=== PATIENT | male | born 1940 | race African-American/Black ===

== ENCOUNTER 2017-07-10 11:21 | Emergency (ER) | payer MEDICARE, OTHER ==
[~2017-07-10 11:21] MED LIST: COUM4TAB7 PO; ENAL5TAB PO; GLUCTAB PO; HYDR-3533 PO; LOVA1TAB47 PO; METHO500 PO; TERA1CAP3 PO
[2017-07-10 11:22] VITALS: BP 108/79; PULSE 84; RESP 16; TEMP 98.4; O2SAT 97
[2017-07-10] MEDS ORDERED: WARF-20 PO (12:36)
[2017-07-10] MEDS ORDERED: ROBA500T PO (12:36)
[2017-07-10] MEDS ORDERED: ENAL5TAB PO (12:36)
[2017-07-10] MEDS ORDERED: METF500T4 PO (12:36)
[2017-07-10] MEDS ORDERED: LOVA20TA PO (12:36)
[2017-07-10] MEDS ORDERED: HYDR-3516 PO (12:36)
[2017-07-10] MEDS ORDERED: TERA1CAP3 PO (12:36)
[2017-07-10 12:38] VITALS: BP 123/70; PULSE 76; RESP 19; O2SAT 98
--- NOTE | 2017-07-10 13:23 | PD ---
Physical Exam Date Seen by Provider: Jul 10, 2017 Time Seen by Provider: 13:20 Narrative This patient presents with the chief complaint of hiccups. The patient is very angry at this time. No further history was really available because he was extremely angry Data Data Last Documented VS Vital Signs Date Time Temp Pulse Resp B/P (MAP) Pulse Ox O2 Delivery O2 Flow Rate FiO2 07/10/17 12:38 76 19 123/70 (87) 98 Room Air 07/10/17 11:22 98.4 Orders Orders Chlorpromazine Inj (Thorazine Inj) (07/10/17 13:15) MDM Supervised Visit with JUJU: Yes Narrative Course I, Dr. Mclaughlin, have reviewed the advance practice practitioner's documentation and am in agreement, met with the patient face to face, made the diagnosis, and the medical decision making was done by me. *My assessment and Findings: The patient is hiccuping frequently and regularly. He is having no respiratory issues as he is talking to me angrily with no respiratory distress. A Thorazine shot has been ordered for the patient. I have added a lidocaine nebulizer. Please see Apple Desouza NP's note for results of laboratory and radiographic evaluation, ED course, final diagnosis and disposition Alexandra Mclaughlin MD Jul 10, 2017 13:23
[2017-07-10] MEDS ORDERED: RESP: LIDOCAINE HCL 4% PF 5 ML NEB NEB ONE (13:30)
--- NOTE | 2017-07-10 13:45 | PD ---
HPI Chief Complaint: GI Complaint Time Seen by Provider: 12:40 Travel History International Travel<30 days: No Contact w/Intl Traveler<30days: No Traveled to known affect area: No History of Present Illness HPI 76 year old male patient presents to the emergency department for evaluation of hiccups that started last night after eating dinner. Patient states they have been continuous since then without any break. Patient states this has never happened before. He denies any fever, chills, nausea, vomiting, chest pain, shortness of breath. Patient states he is tired because he had a difficult time sleep with the hiccups. PFSH Past Medical History Arthritis: Yes (RT HIP) Blood Disorders: No Cancer: Yes (PROSTATE) High Cholesterol: Yes Chemotherapy: Yes Diabetes: Yes Patient Takes Glucophage: Yes Diminished Hearing: No Gastrointestinal Disorders: Yes GERD: Yes Hypertension: Yes Radiation Therapy: Yes (1997) Ulcer: Yes Influenza Vaccination: Yes Past Surgical History Abdominal Surgery: Yes (HERNIA) Joint Replacement: No Other Surgery: Yes (ABD HERNIA AGE 30) Social History Alcohol Use: No Tobacco Use: No Substance Use: No Allergies-Medications (Allergen,Severity, Reaction): Coded Allergies: No Known Allergies (Verified Adverse Reaction, Unknown, 07/10/17) Reported Meds & Prescriptions Reported Meds & Active Scripts Active Reported Warfarin 4 Mg Tab 8 Mg PO DAILY Terazosin (Terazosin HCl) 1 Mg Cap 1 Mg PO HS Lovastatin 20 Mg Tab 20 Mg PO DAILY Robaxin (Methocarbamol) 500 Mg Tab 500 Mg PO TID PRN Metformin ER (Metformin HCl) 500 Mg Chucho 500 Mg PO DAILY With evening meal Hydrocodone-Acetaminophen 5-325 mg Tab 1 Tab PO Q6H PRN Enalapril (Enalapril Maleate) 5 Mg Tab 5 Mg PO DAILY Review of Systems Except as stated in HPI: all other systems reviewed are Neg Physical Exam Narrative GENERAL: Well-nourished, well-developed 76 year old male patient that appears to be in mild discomfort with continuous hiccups noted. SKIN: Focused skin assessment warm/dry. HEAD: Normocephalic. Atraumatic. EYES: No scleral icterus. No injection or drainage. NECK: Supple, trachea midline. No JVD or lymphadenopathy. CARDIOVASCULAR: Regular rate and rhythm without murmurs, gallops, or rubs. RESPIRATORY: Breath sounds equal bilaterally. No accessory muscle use. GASTROINTESTINAL: Abdomen soft, non-tender, nondistended. MUSCULOSKELETAL: No cyanosis, or edema. BACK: Nontender without obvious deformity. No CVA tenderness. Data Data Last Documented VS Vital Signs Date Time Temp Pulse Resp B/P (MAP) Pulse Ox O2 Delivery O2 Flow Rate FiO2 07/10/17 12:38 76 19 123/70 (87) 98 Room Air 07/10/17 11:22 98.4 Orders Orders Chlorpromazine Inj (Thorazine Inj) (07/10/17 13:15) Lidocaine Pf 4% Neb (Lidocaine Pf 4% Neb (07/10/17 13:30) MDM Medical Decision Making Medical Screen Exam Complete: Yes Emergency Medical Condition: Yes Differential Diagnosis Differential diagnoses include but not limited to hiccups, diaphragmatic hernia , anxiety Narrative Course Patient has no physiological complaints outside the incessant hiccups. 50 mg IM Thorazine ordered. Patient became verbally hostile to staff and left immediately after receiving the Thorazine injection. He did not tell staff he was leaving. He just walked out of the emergency department. Due to the proximity of time, we were unable to ascertain if the Thorazine injection was successful. Patient left AMA before receiving the lidocaine nebulizer Dr Mclaughlin ordered. Diagnosis Primary Impression: Left against medical advice Disposition: 07 AGAINST MEDICAL ADVICE Condition: Stable Apple Desouza Jul 10, 2017 13:45
== END 2017-07-10 13:41 | disposition left against medical advice (07) ==
LOC: NEPD 11:21
DX: R06.6 Hiccough (principal); E78.00 Pure hypercholesterolemia, unspecified; E11.9 Type 2 diabetes mellitus without complications; I10 Essential (primary) hypertension; K21.9 Gastro-esophageal reflux disease without esophagitis; M16.11 Unilateral primary osteoarthritis, right hip; Z79.84 Long term (current) use of oral hypoglycemic drugs
CPT/HCPCS: 96372; 99284; J3230